=== PATIENT | female | born 1935 | race Caucasian/White ===

== ENCOUNTER 2024-05-06 21:26 | Emergency (ER) | payer MEDICARE, BC, SELFPAY ==
[2024-05-06] VITALS (16 sets, daily range): BP systolic 135–216; BP diastolic 67–118; PULSE 82–99; RESP 15–42; TEMP 36.5; O2SAT 96–100
--- NOTE | ~2024-05-06 | XR_ITS ---
EXAMINATION: XR chest 1V portable DATE: 05/06/2024 21:59 INDICATION: Generalized weakness. TECHNIQUE: A single frontal view of the chest was obtained. COMPARISON: None. FINDINGS: There is mild atelectasis at right lung base. No pleural effusion or pneumothorax. The hear t size is normal. IMPRESSION: 1. Mild atelectasis at right lung base. Reviewed, dictated and finalized at location E.
--- NOTE | ~2024-05-06 | CT_ITS ---
CT head without contrast Indication: Altered mental status Technique: Serial scans were obtained through the brain without the administration of contrast. Dose reduction technique was used on this scan by utilizing automated exposure control and iterative recon struction technique. The dose-length product (DLP) was 605.33 mGy-cm. Findings: There is no evidence of intracranial hemorrhage, mass lesion, or acute infarct. There is ch ronic lacunar infarct versus dilated perivascular space in the right basal ganglia. The ventricles an d subarachnoid spaces are dilated, consistent with minimal atrophy. 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 There is no evidence of edema, mass effect or midline shift. The visualiz ed paranasal sinuses and mastoid air cells are clear. Impression: No intracranial hemorrhage, mass, or acute infarct. 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 Atrophy and chronic white matter changes, as above. Reviewed, dictated and finalized at location . Impression: No intracranial hemorrhage, mass, or acute infarct. Chronic lacunar infarct versus dilated perivascular space in the right basal ga nglia. Atrophy and chronic white matter changes, as above.
--- NOTE | 2024-05-06 21:32 | ECG_ITS ---
Test Date: 2024-05-06 21:30:00 Measurements Intervals [place] Rate: 94 P: 0 PA: 0 QRS: 18 QRSD: 98 T: 31 QT: 355 QTc: 445 Interpretive Statements SINUS RHYTHM ATRIAL PREMATURE COMPLEXES MINIMAL ST DEPRESSION BASELINE ARTIFACT- I, II, III, AVR, AVL, AVF, V1-V6 BORDERLINE ECG ABNORMAL RHYTHM ECG No previous ECG available for comparison Electronically Signed On 05-07-2024 05:56:29 CDT by Og Billingsley D.O.
[2024-05-06 21:45] LABS: Basophils Absolute Auto 0.1 K/mm3 (0.0-0.1); Basophils Percent Auto 0.9 % (0.2-1.2); Eosinophils Absolute Auto 0.1 K/mm3 (0-0.3); Eosinophils Percent Auto 1.4 % (0-4.4); Hematocrit 34.7 % (37.0-47.0); Hemoglobin 12.3 g/dL (12.0-15.0); Immature Granulocyte Absolute 0.01 K/mm3 (0.00-0.031); Immature Granulocyte Percent A 0.2 % (0-0.5); Immature Platelet Fraction Pct 2.1 % (0.9-11.2); Mean Corpuscular HGB Conc 35.4 g/dl (32-36); Mean Corpuscular Volume 90.4 fl (80-100); Mean Platelet Volume 9.4 fl (7.4-10.4); Monocytes Absolute Auto 0.5 K/mm3 (0.1-0.6); Monocytes Percent Auto 7.6 % (2.6-8.5); Neutrophils Absolute Auto 3.6 K/mm3 (1.3-6.7); Neutrophils Percent Auto 54.9 % (45.5-73.1); Platelet Count Result 317 k/mm3 (150-375); Red Blood Count 3.84 M/mm3 (4.2-5.4); Red Cell Distribution Width 12.7 % (11.5-14.5); White Blood Count 6.6 K/mm3 (4.5-10.0)
[2024-05-06 21:57] LABS: Appearance Urine Clear (Clear); Bilirubin Urine Negative (Negative); Blood Urine Negative (Negative); Color Urine Yellow (Yellow); Glucose Urine UA Negative (Negative); Ketones Urine Negative (Negative); Leukocyte Esterase Ur Negative LEU/UL (Negative); Nitrate Urine Negative (Negative); Protein Urine Negative (Negative); Urobilinogen Urine 0.2 mg/dL (<2.0)
[2024-05-06 21:57] LABS: Alanine Aminotransferase 21 U/L (6-35); Albumin Level 4.6 g/dL (3.5-5.1); Alkaline Phosphatase 118 U/L (38-126); Anion Gap 9 mmol/L (4-12); Aspartate Amino Transferase 29 U/L (14-36); Bilirubin,Total 0.7 mg/dL (0.2-1.3); Blood Urea Nitrogen 24 mg/dL (7-17); Calcium 10.8 mg/dL (8.4-10.2); Carbon Dioxide 23 mmol/L (22-30); Chloride 99 mmol/L (98-107); Estimated CRCL calculation 51 ml/min; Estimated Glomerular Filt Rate > 60; Glucose 113 mg/dL (65-110); Potassium 3.4 mmol/L (3.4-5.0); Sodium 131 mmol/L (137-145)
[2024-05-06 22:01] LABS: Add Urine Microscopic? NO
[2024-05-06] MEDS: SODIUM CHLORIDE 0.9% IV 1,000 ML 999 ML IV CONT (22:07)
[2024-05-06] MEDS: hydrALAZINE HCL 20 MG/ML VIAL 10 MG IV PUSH (22:16)
[2024-05-06 22:25] LABS: Lactic Acid Reflex 1.6 mmol/L (0.7-2.0)
[2024-05-06 22:38] LABS: Troponin I < 0.012 ng/mL (0.000-0.034)
[2024-05-06] MEDS: LORazepam INJ (*CRX) 2 MG/ML VIAL 0.5 MG IV PUSH (22:52)
--- NOTE | 2024-05-06 23:19 | ED.GENADULT ---
HPI - General Adult General Chief complaint: Weakness Stated complaint: GENERALIZED WEAKNESS Time Seen by Provider: 05/06/24 21:42 History of Present Illness HPI narrative: Patient a 8-year-old female presents emergency department with chief complaint of generalized weakness and not feeling right. Patient was just in [place] and discharged on the patient states she is not feeling well reports he has been little confused at times and very anxious the patient also noticed her blood pressures been elevated the patient cannot really describe exactly what symptoms she is having Your patient denies motor weakness the family reports she is just not her usual self since she left the hospital Related Data Home Medications Medication Instructions Recorded Confirmed amlodipine 5 mg tablet 5 mg PO DAILY 05/06/24 calcium carbonate 600 mg-vitamin tablet 05/06/24 D3 5 mcg (200 unit) tablet cholecalciferol (vitamin D3) 50 50 mcg PO DAILY 05/06/24 mcg (2,000 unit) capsule dorzolamide 22.3 mg-timolol 6.8 05/06/24 mg/mL eye drops glucosamine sulf dipot cap PO 05/06/24 chlr,msm,chond 550 mg-C 30 mg-etta 1 mg capsule (Glucosamine Chondroitin) hydrochlorothiazide 25 mg tablet 25 mg PO DAILY 05/06/24 levothyroxine 75 mcg tablet 75 mcg PO DAILY 05/06/24 losartan 100 mg tablet 100 mg PO DAILY 05/06/24 multivit with minerals-iron 18 tablet PO 05/06/24 mg-folic ac 400 mcg-vit K 25 mcg tablet (Adults Multivitamin) pravastatin 40 mg tablet 40 mg PO DAILY 05/06/24 Allergies Allergy/AdvReac Type Severity Reaction Status Date / Time No Known Allergies Allergy Verified 05/06/24 21:33 Review of Systems Review of Systems: A 10 system review of systems was completed on the patient and is negative except for what is stated in the HPI. Nursing and ancillary documentation was reviewed. Exam Narrative: GENERAL: Well-appearing, well-nourished, and in no acute distress. HEAD: Normocephalic, atraumatic. EYES: PERRLA and EOMI. ENT: Nares clear, no rhinorrhea or epistaxis. Mucous membranes moist. NECK: Supple. CHEST: Clear to auscultation. No respiratory distress. HEART: Regular rate and rhythm. No murmur heard. Normal peripheral pulses. ABDOMEN: Soft, nontender, nondistended, normal active bowel sounds. EXTREMITIES: Normal range of motion. No edema. SKIN: Warm, dry, no rash. NEURO: No focal deficits. Alert and oriented x3. Moves all extremities equally no motor weakness speech pattern normal PSYCH: Anxious mood and affect. Course Vital Signs Vital signs: Vital Signs Temperature 36.5 C 05/06/24 21:24 Pulse Rate 97 05/06/24 21:24 Respiratory Rate 20 05/06/24 21:24 Blood Pressure 145/100 H 05/06/24 21:24 Pulse Oximetry 100 05/06/24 21:24 Oxygen Delivery Room Air 05/06/24 21:24 Temperature 36.5 C 05/06/24 21:24 Pulse Rate 86 05/06/24 23:45 Respiratory Rate 17 05/06/24 23:45 Blood Pressure 135/74 05/06/24 23:31 Pulse Oximetry 97 05/06/24 23:45 Oxygen Delivery Room Air 05/06/24 21:24 Medical Decision Making MDM Narrative Medical decision making narrative: Differential diagnosis includes electrolyte abnormality, hypertensive crisis, anxiety, UTI, pneumonia, intracranial hemorrhage CT head showed no acute abnormality chest x-ray showed no focal findings urinalysis showed UTI lactic acid was 1.6 electrolytes showed no acute abnormality CBC was within normal limits Patient received a small dose Ativan emergency department much better Vital Signs Vital Signs: Vital Signs Temperature 36.5 C 05/06/24 21:24 Pulse Rate 97 05/06/24 21:24 Respiratory Rate 20 05/06/24 21:24 Blood Pressure 145/100 H 05/06/24 21:24 Pulse Oximetry 100 05/06/24 21:24 Oxygen Delivery Room Air 05/06/24 21:24 Temperature 36.5 C 05/06/24 21:24 Pulse Rate 86 05/06/24 23:45 Respiratory Rate 17 05/06/24 23:45 Blood Pressure 135/74
--- NOTE | 2024-05-07 00:01 | PC.NURSE ---
Patient states I feel much better. I don't know what you gave me but I feel much better. ERP notified.
--- NOTE | 2024-05-07 00:42 | ECG_ITS ---
Test Date: 2024-05-07 00:46:21 Measurements Intervals [place] Rate: 86 P: 38 [place]: 150 QRS: 28 QRSD: 98 T: 44 QT: 371 QTc: 446 Interpretive Statements SINUS RHYTHM NORMAL ECG Compared to ECG 05/06/2024 21:30:00 Atrial premature complex(es) no longer present ST (T wave) deviation no longer present Electronically Signed On 05-07-2024 05:57:48 CDT by Og Billingsley D.O.
[2024-05-07 01:17] LABS: Troponin I < 0.012 ng/mL (0.000-0.034)
[2024-05-07 01:41] VITALS: BP 129/68; PULSE 84; RESP 17; O2SAT 96
== END 2024-05-07 01:44 | disposition home or self-care (01) ==
PROVIDERS: Emergency Provider Emergency Medicine; Referring Provider Internal Medicine Cardiovascular Disease
DX: R53.1 Weakness (principal); Z79.899 Other long term (current) drug therapy; I49.1 Atrial premature depolarization; R94.31 Abnormal electrocardiogram [ECG] [EKG]
CPT/HCPCS: 36415; 70450; 71045; 80053; 81003; 83605; 83735; 84145; 84484; 85025; 85055; 93005; 96361; 96374; 96375; 99284; J0360; J2060; J7030

== ENCOUNTER 2024-05-19 20:40 | Emergency (ER) | payer MEDICARE, BC, SELFPAY ==
--- NOTE | ~2024-05-19 | CT_ITS ---
EXAMINATION: CTA chest PE protocol DATE: 05/19/2024 23:00 INDICATION: Kidney. Lightheadedness. TECHNIQUE: Computed tomography (CT) pulmonary angiogram of the chest was performed with 100 mL Omnipa que-350 intravenous contrast. Additional 3D reconstructions utilizing coronal maximum intensity proje ction (MIP) were performed. Automated exposure control and iterative reconstruction technique were em ployed. The dose-length product was 197.79 mGy-cm. COMPARISON: None FINDINGS: Excellent contrast opacification of the pulmonary arteries demonstrating no pulmonary embolism. There is mild dependent atelectasis in the bilateral lower lobes and linear band of discoid atelectasis in the right middle lobe. No pneumonia, pulmonary edema, pleural effusion or pneumothorax. Calcified no dules in the right middle lobe along with small calcified right hilar lymph nodes consistent with old granulomatous disease. Heart size is normal. Atherosclerotic 1 artery calcific location. No pericard ial effusion. Thoracic aorta is normal in caliber with no dissection. No pathologically enlarged thor acic lymphadenopathy. Small sliding-type hiatal hernia. There are multiple cysts scattered throughout the liver the largest measuring up to 5.9 cm. There is mild bilateral hydronephrosis. Small bowel an astomosis in the left abdomen. Mild thoracolumbar levoscoliosis with moderate spondylosis. Hemangioma at the L1 vertebral body. IMPRESSION: 1. Mild atelectasis in the right middle and bilateral lower lobes. No pulmonary embolism or other acu te cardiopulmonary disease. 2. Mild bilateral hydronephrosis of indeterminate etiology but which suggests either bladder outlet o bstruction or neurogenic bladder. Correlate clinically and could consider CT urogram as clinically in dicated. Reviewed, dictated and finalized at location A. IMPRESSION: 1. Mild atelectasis in the right middle and bilateral lower lobes. No pulmonary embolism or other acute cardiopulmonary disease. 2. Mild bilateral hydronephrosis of indeterminate etiology but which suggests e ither bladder outlet obstruction or neurogenic bladder. Correlate clinically an d could consider CT urogram as clinically indicated.
--- NOTE | ~2024-05-19 | CT_ITS ---
Non-contrast Head CT History: Altered mental status COMPARISON: 05/06/2024 Technique: Axial non-contrast imaging of the brain was performed. Dose reduction technique was used on this scan by utilizing automated exposure control and iterative reconstruction technique. The dose -length product (DLP) was 681.00 mGy-cm. Findings: There is no evidence of intracranial hemorrhage, mass lesion, or acute infarct. Stable chr onic lacunar infarct or dilated perivascular space in the right basal ganglia. The ventricles and donohue barachnoid spaces are normal in size. The calvarium appears normal. The visualized paranasal sinuse s and mastoid air cells are clear. Impression: No acute abnormality seen. Stable chronic lacunar infarct or dilated perivascular space at the right basal ganglia. Reviewed, dictated and finalized at [facility]. Impression: No acute abnormality seen. Stable chronic lacunar infarct or dilated perivascular space at the right basal ganglia.
--- NOTE | ~2024-05-19 | XR_ITS ---
Portable chest x-ray Comparison: 05/06/2024 Clinical History: Altered mental status Findings: Mild patchy haziness at the right infrahilar region. Left lung clear. Cardiomediastinal s ilhouette is stable. Bones and soft tissues are unremarkable. Impression: Mild patchy haziness in the right infrahilar region. Subtle pneumonia is a consideration. Reviewed, dictated and finalized at location . Impression: Mild patchy haziness in the right infrahilar region. Subtle pneumonia is a cons ideration.
[2024-05-19 20:39] VITALS: BP 109/46; PULSE 81; RESP 31; TEMP 36.4; O2SAT 100
--- NOTE | 2024-05-19 20:52 | ECG_ITS ---
Test Date: 2024-05-19 21:02:11 Measurements Intervals [place] Rate: 89 P: 16 [place]: 143 QRS: 25 QRSD: 91 T: 31 QT: 356 QTc: 433 Interpretive Statements SINUS RHYTHM BASELINE ARTIFACT- II, III, AVR, AVL, AVF, V1, V3 BORDERLINE ECG Compared to ECG 05/07/2024 00:46:21 No significant changes Electronically Signed On 05-20-2024 07:23:09 CDT by Og Billingsley D.O.
[2024-05-19 21:20] LABS: Basophils Absolute Auto 0.1 K/mm3 (0.0-0.1); Basophils Percent Auto 0.9 % (0.2-1.2); Eosinophils Absolute Auto 0.1 K/mm3 (0-0.3); Eosinophils Percent Auto 1.8 % (0-4.4); Hematocrit 36.2 % (37.0-47.0); Hemoglobin 12.6 g/dL (12.0-15.0); Immature Granulocyte Absolute 0.01 K/mm3 (0.00-0.031); Immature Granulocyte Percent A 0.2 % (0-0.5); Lymphocytes Absolute Auto 1.41 K/mm3 (0.9-3.2); Lymphocytes Percent Auto 25.4 % (18.3-44.2); Mean Corpuscular HGB Conc 34.8 g/dl (32-36); Mean Corpuscular Hemoglobin 32.6 pg (26-34); Mean Corpuscular Volume 93.8 fl (80-100); Mean Platelet Volume 9.8 fl (7.4-10.4); Monocytes Absolute Auto 0.4 K/mm3 (0.1-0.6); Monocytes Percent Auto 6.7 % (2.6-8.5); Neutrophils Absolute Auto 3.6 K/mm3 (1.3-6.7); Platelet Count Result 263 k/mm3 (150-375); Red Blood Count 3.86 M/mm3 (4.2-5.4); Red Cell Distribution Width 12.7 % (11.5-14.5); White Blood Count 5.6 K/mm3 (4.5-10.0)
[2024-05-19 21:31] LABS: INR 0.9; Lactic Acid Reflex 1.3 mmol/L (0.7-2.0); Partial Thromboplastin Time 22.8 Seconds (22.3-36.8); Prothrombin Time 12.5 Seconds (11.1-14.7)
[2024-05-19] MEDS: LORazepam INJ (*CRX) 2 MG/ML VIAL 0.5 MG IV PUSH (21:45)
[2024-05-19 22:12] LABS: Alanine Aminotransferase 21 U/L (6-35); Albumin Level 4.3 g/dL (3.5-5.1); Alkaline Phosphatase 107 U/L (38-126); Anion Gap 10 mmol/L (4-12); Aspartate Amino Transferase 28 U/L (14-36); Bilirubin,Total 0.6 mg/dL (0.2-1.3); Blood Urea Nitrogen 22 mg/dL (7-17); Calcium 10.3 mg/dL (8.4-10.2); Carbon Dioxide 20 mmol/L (22-30); Chloride 102 mmol/L (98-107); Creatine Kinase 56 U/L (30-135); Estimated CRCL calculation 58 ml/min; Estimated Glomerular Filt Rate > 60; Glucose 106 mg/dL (65-110); Potassium 3.5 mmol/L (3.4-5.0); Sodium 132 mmol/L (137-145)
[2024-05-19 22:24] LABS: Troponin I < 0.012 ng/mL (0.000-0.034)
[2024-05-19 22:34] VITALS: BP 144/65; PULSE 67; RESP 18; O2SAT 98
[2024-05-19 23:14] LABS: Appearance Urine Clear (Clear); Bilirubin Urine Negative (Negative); Blood Urine Negative (Negative); Color Urine Yellow (Yellow); Glucose Urine UA Negative (Negative); Ketones Urine Negative (Negative); Leukocyte Esterase Ur Negative LEU/UL (Negative); Nitrate Urine Negative (Negative); Protein Urine Negative (Negative); Specific Grav Ur 1.006 (1.001-1.035); Urobilinogen Urine 0.2 mg/dL (<2.0)
[2024-05-19 23:29] LABS: Amphetamine Screen Urine Negative (Negative); Barbiturate Screen Urine Negative (Negative); Benzodiazepines Screen Urine Negative (Negative); Cannabinoid Screen Urine Negative (Negative); Cocaine Screen Urine Negative (Negative); Methadone Screen Urine Negative (Negative); Opiate Screen Urine Negative (Negative); Phencyclidine Screen Urine Negative (Negative)
[2024-05-19 23:34] LABS: Add Urine Microscopic? NO
--- NOTE | 2024-05-19 23:50 | ED.ANXIETY ---
HPI - Anxiety General Chief Complaint: Anxiety <Peace Matos PA-C - Last Filed: 05/20/24 02:32> Stated Complaint: Feeling unwell and anxious <Peace Matos PA-C - Last Filed: 05/20/24 02:32> History of Present Illness HPI narrative: 88-year-old female presents via EMS from home with concerns for anxiety. Patient's son is at bedside to assist with history. Patient states she was at home sitting when she began feeling bad . When asked her to elaborate on this she said she felt dizzy, her lower legs and right arm. and began breathing very quickly. She stated that she started shaking and became scared. She called her son who came to the patient's house and reports the patient was off . When I asked him to describe this he states that she was staring off and not answering his questions. States that patient was here 2 weeks ago for similar symptoms. Her workup at that time was negative and she was discharged home. She also states she has been seen at [place] emergency department within the past few weeks for similar symptoms. States when she was at [place] her right arm was shaking during that episode. She again was told this was anxiety. Her hoisting machine operator recently started her on buspirone which she took today. patient is on endorses a recent diagnosis of anxiety within the past few weeks. States she has not had any anxiety until recently. EMS states that when they arrived the patient was breathing very quickly and believes her respirations around 32 per minute. she denies chest pain or shortness of breath, palpitations, abdominal pain, nausea vomiting, diarrhea, headache, vision changes or focal numbness or weakness. Patient states she has never had history of anxiety in the past. With the past 5 weeks she has had 3 episodes that have caused her to go to the ED. <Peace Matos PA-C - Last Filed: 05/20/24 02:32> Related Data Home Medications: Home Medications Medication Instructions Recorded Confirmed amlodipine 5 mg tablet 5 mg PO DAILY 05/06/24 calcium carbonate 600 mg-vitamin tablet 05/06/24 D3 5 mcg (200 unit) tablet cholecalciferol (vitamin D3) 50 50 mcg PO DAILY 05/06/24 mcg (2,000 unit) capsule dorzolamide 22.3 mg-timolol 6.8 05/06/24 mg/mL eye drops glucosamine sulf dipot cap PO 05/06/24 chlr,msm,chond 550 mg-C 30 mg-etta 1 mg capsule (Glucosamine Chondroitin) hydrochlorothiazide 25 mg tablet 25 mg PO DAILY 05/06/24 levothyroxine 75 mcg tablet 75 mcg PO DAILY 05/06/24 losartan 100 mg tablet 100 mg PO DAILY 05/06/24 multivit with minerals-iron 18 tablet PO 05/06/24 mg-folic ac 400 mcg-vit K 25 mcg tablet (Adults Multivitamin) pravastatin 40 mg tablet 40 mg PO DAILY 05/06/24 <Peace Matos PA-C - Last Filed: 05/20/24 02:32> Allergies/Adverse Reactions: Allergies Allergy/AdvReac Type Severity Reaction Status Date / Time No Known Allergies Allergy Verified 05/06/24 21:33 <Peace Matos PA-C - Last Filed: 05/20/24 02:32> Review of Systems Review of Systems: All systems reviewed & are unremarkable except as noted in HPI and below <Peace Matos PA-C - Last Filed: 05/20/24 02:32> Exam Narrative: GENERAL: Well-appearing, well-nourished, and in no acute distress. anxious appearing HEAD: Normocephalic, atraumatic. EYES: PERRLA and EOMI. ENT: Nares clear, no rhinorrhea or epistaxis. Mucous membranes moist. NECK: Supple. CHEST: Clear to auscultation. No respiratory distress. tachypneic HEART: Regular rate and rhythm. No murmur heard. Normal peripheral pulses. ABDOMEN: Soft, nontender, nondistended, normal active bowel sounds. EXTREMITIES: Normal range of motion. No edema. SKIN: Warm, dry, no rash. NEURO: No focal deficits. Alert and oriented x3. Moving all extremities Spontaneously <ETHAN Brandon Last Filed: 05/20/24 02:32> Course EXCHANGE SPECIALIST/PA Physician Supervision For this patient encounter, I re
[2024-05-19] MEDS: SODIUM CHLORIDE 0.9% IV 1,000 ML 999 ML IV CONT (23:54)
[2024-05-19 23:55] VITALS: BP 139/79; PULSE 98
[2024-05-19 23:56] VITALS: BP 160/89; PULSE 110
[2024-05-20 00:04] VITALS: BP 180/97; PULSE 99
[2024-05-20 01:18] VITALS: BP 134/77; PULSE 75; RESP 14; O2SAT 98
== END 2024-05-20 02:24 | disposition home or self-care (01) ==
PROVIDERS: Emergency Provider Physician Assistant; PCP Internal Medicine
DX: F41.9 Anxiety disorder, unspecified (principal); Z79.899 Other long term (current) drug therapy; R94.31 Abnormal electrocardiogram [ECG] [EKG]; N13.30 Unspecified hydronephrosis; R91.8 Other nonspecific abnormal finding of lung field
CPT/HCPCS: 36415; 70450; 71045; 71275; 80053; 80307; 81003; 82550; 83605; 84443; 84484; 85025; 85610; 85730; 93005; 96361; 96374; 99284; J2060; J7030; Q9967

== ENCOUNTER 2024-06-01 10:26 | Outpatient (CLI) | payer MEDICARE, BC, SELFPAY ==
--- NOTE | 2024-06-01 | NEURO_ITS ---
Report originally signed on 06/04/2024 1223. Neurology EEG Report General Information Date of Study: 06/01/24 TEST Electroencephalogram DIAGNOSIS Possible seizure disorder CONDITION OF RECORDING Satisfactory EEG NUMBER [id number] CLINICAL HISTORY The patient has several a spells of brief unresponsiveness and shaking of the right arm and speech difficulties EEG DESCRIPTION During wakefulness the background activity consists of posterior dominant of alpha rhythm at 9 hertz with an amplitude of 25-50 microvolts which appears moderately formed and reactive drive. Anteriorly, low amplitude mixed frequency activity was seen. There is a good anteroposterior gradient. Hyperventilation was not performed. Photic stimulation was performed , during which no significant abnormal background changes were seen. During drowsiness attenuation of background activity was seen however patient did not progress to stage 2 sleep. IMPRESSION This is a normal EEG obtained during awake and drowsy states he This report may have been done utilizing a voice recognition system. Attempts have been made to correct errors. However, there may be uncorrected grammatical, spelling, and recognition errors present. Report Initialized date/time: Chris Chatman MD 06/04/24 / 1223 Electronically signed by: Chris Chatman MD 06/04/[address] [facility]
== END 2024-06-01 10:27 | disposition home or self-care (01) ==
PROVIDERS: PCP Internal Medicine; Visit Provider Psychiatry & Neurology Neurology
DX: G40.909 Epilepsy, unspecified, not intractable, without status epilepticus (principal)
CPT/HCPCS: 95816

== ENCOUNTER 2024-06-02 08:30 | Outpatient (CLI) | payer MEDICARE, BC, SELFPAY ==
--- NOTE | ~2024-06-02 | MR_ITS ---
EXAMINATION: MR brain/brain stem wo con DATE: 06/02/2024 09:09 INDICATION: Transient cerebral ischemic attack, unspecified. TECHNIQUE: Magnetic resonance imaging (MRI) of the brain and brainstem was performed without intraven ous contrast. COMPARISON: Head CT 05/19/2024 FINDINGS: There are scattered areas of nonspecific increased T2-weighted signal intensity in the cere bral white matter, which is within normal limits for the patient's age. There is no intracranial hemo rrhage, acute infarction, or abnormal intracranial mass lesion. The ventricles are normal in size. Th ere is a trace left mastoid effusion. There are likely changes of ocular lens replacement surgeries. There is mild mucosal thickening in the paranasal sinuses. IMPRESSION: 1. Normal aging brain. Reviewed, dictated and finalized at location E. IMPRESSION: 1. Normal aging brain.
== END 2024-06-02 08:31 | disposition home or self-care (01) ==
PROVIDERS: PCP Internal Medicine; Visit Provider Psychiatry & Neurology Neurology
DX: G45.9 Transient cerebral ischemic attack, unspecified (principal); G40.909 Epilepsy, unspecified, not intractable, without status epilepticus; Z87.828 Personal history of other (healed) physical injury and trauma
CPT/HCPCS: 70551

== ENCOUNTER 2024-06-08 12:40 | Outpatient (CLI) | payer MEDICARE, BC, SELFPAY ==
--- NOTE | 2024-06-04 12:16 | WPDNEUROLOGY ---
Neurology EEG Report General Information Date of Study: 06/01/24 TEST Electroencephalogram DIAGNOSIS Possible seizure disorder CONDITION OF RECORDING Satisfactory EEG NUMBER [id number] CLINICAL HISTORY The patient has several a spells of brief unresponsiveness and shaking of the right arm and speech difficulties EEG DESCRIPTION During wakefulness the background activity consists of posterior dominant of alpha rhythm at 9 hertz with an amplitude of 25-50 microvolts which appears moderately formed and reactive drive. Anteriorly, low amplitude mixed frequency activity was seen. There is a good anteroposterior gradient. Hyperventilation was not performed. Photic stimulation was performed , during which no significant abnormal background changes were seen. During drowsiness attenuation of background activity was seen however patient did not progress to stage 2 sleep. IMPRESSION This is a normal EEG obtained during awake and drowsy states he
--- NOTE | ~2024-06-08 | US_ITS ---
EXAMINATION: US carotid duplex BI DATE: 06/08/2024 13:20 INDICATION: Transient ischemic attack. TECHNIQUE: Grayscale, color Doppler, and pulsed Doppler images of the cervical carotid arteries were obtained. The degree of vessel stenosis is placed in one of the following categories: normal, <50%, 5 0-69%, >=70% but less than near-occlusion, near-occlusion, or total occlusion. Note that percent sten osis relative to normal distal artery lumen diameter is indirectly measured from velocity measurement s as described by Jean Carlos, et al. Radiology 2003; 229:340-346. COMPARISON: None. FINDINGS: RIGHT: The right common carotid artery (CCA) peak systolic velocity (PSV) is 111 cm/s. The right internal ca rotid artery (ICA) PSV is 109 cm/s. The right ICA end-diastolic velocity (EDV) is 24 cm/s. The right ICA/CCA PSV ratio is 1.0. Grayscale and color Doppler images yield an estimate of <50% diameter reduc tion from plaque in the ICA. There is antegrade flow in the right vertebral artery. LEFT: The left CCA PSV is 91 cm/s. The left ICA PSV is 93 cm/s. The left ICA EDV is 28 cm/s. The left ICA/C CA PSV ratio is 1.0. Grayscale and color Doppler images yield an estimate of <50% diameter reduction from plaque in the ICA. There is antegrade flow in the left vertebral artery. IMPRESSION: 1. <50% stenosis in the right internal carotid artery. 2. <50% stenosis in the left internal carotid artery. Reviewed, dictated and finalized at location A.
== END 2024-06-08 12:41 | disposition home or self-care (01) ==
LOC: ANHIMG 12:41
PROVIDERS: PCP Internal Medicine; Visit Provider Psychiatry & Neurology Neurology
DX: Z09 Encounter for follow-up examination after completed treatment for conditions other than malignant neoplasm (principal); G40.909 Epilepsy, unspecified, not intractable, without status epilepticus; I65.23 Occlusion and stenosis of bilateral carotid arteries
CPT/HCPCS: 93880